=== PATIENT | female | born 1965 ===

== ENCOUNTER 2017-04-15 12:47 | Emergency (ER) | payer MEDICAID, OTHER ==
[2017-04-15 13:00] VITALS: BMI 52.5
[2017-04-15 13:01] VITALS: BP 119/73; PULSE 77; RESP 18; TEMP 98.2; O2SAT 99
--- NOTE | 2017-04-15 13:19 | C.PDOC ---
History Of Present Illness 51 y/o female presents to ED with complaints of left heel pain for 8 days. Patient states she started to feel discomfort while wearing heels and reports pain worse when walking. Patient reports she applied cream to areas 4 days ago with small relief. Patient denies injury, numbness, fever, chills or any other complaints at this time. Time Seen by Provider: 04/15/17 13:08 Chief Complaint (Nursing): Lower Extremity Problem/Injury History Per: Patient History/Exam Limitations: no limitations Onset/Duration Of Symptoms: Days Current Symptoms Are (Timing): Still Present Past Medical History Reviewed: Historical Data, Nursing Documentation, Vital Signs Vital Signs: Last Vital Signs Temp 98.2 F 04/15/17 13:00 Pulse 77 04/15/17 13:00 Resp 18 04/15/17 13:00 BP 119/73 04/15/17 13:00 Pulse Ox 99 04/15/17 14:07 - Medical History PMH: Asthma Surgical History: Back Surgery - [facility] Procedures INCIS PERIANAL ABSCESS (04/30/14) PERIRECTAL INCISION (04/30/14) Family History: States: Unknown Family Hx - Social History Hx Tobacco Use: No Hx Alcohol Use: No Hx Substance Use: No - Immunization History Hx Tetanus Toxoid Vaccination: No Hx Influenza Vaccination: No Hx Pneumococcal Vaccination: No Review Of Systems Constitutional: Negative for: Fever, Chills Musculoskeletal: Positive for: Leg Pain Skin: Negative for: Rash, Bruising Neurological: Negative for: Numbness Physical Exam - Physical Exam Appears: Non-toxic, No Acute Distress Skin: Normal Color, Warm, No Rash, No Ecchymosis, Other (No ulcers) Oral Mucosa: Moist Extremity: Tenderness (Mild tenderness to Medial left heel), No Deformity Extremity: Bilateral: Normal ROM Pulses: Left Dorsalis Pedis: Normal, Right Dorsalis Pedis: Normal Neurological/Psych: Oriented x3, Normal Motor, Normal Sensation ED Course And Treatment O2 Sat by Pulse Oximetry: 99 (RA) Pulse Ox Interpretation: Normal - Other Rad Left foot X-Ray: Interpreted by Me, Viewed By Me Interpretation: IMPRESSION: A small plantar calcaneal spur is identified. Degenerative changes seen at the forefoot as discussed above and a mild. No acute fracture or dislocation identified. Medical Decision Making Medical Decision Making: Impression: Plantar Fasciitis Plan: * Xray of left foot Progress, Reassess and Dispo: XRay shows small calcaneal spur, no fracture Patient remained well in no acute distress. Patient to be discharged. Disposition Counseled Patient/Family Regarding: Need For Followup, Rx Given - Disposition Referrals: Podiatry Clinic [Outside] Disposition: HOME/ ROUTINE Disposition Time: 13:31 Condition: STABLE Additional Instructions: Vaya a victoria mdico o la clnica en 2-5 hernandez sin falta, para mas evaluacin. [place] los medicamentos travis indicado. Volver a la fredi de emergencia en cualquier momento si los sntomas persisten o empeoran. Prescriptions: Ibuprofen [Motrin] 600 mg PO Q8 #30 tab Instructions: Plantar Fasciitis (ED) Forms: [employer] (Korean) Print Language: LATVIAN - POA Present On Arrival: None - Clinical Impression Clinical Impression: Plantar fasciitis of left foot - Scribe Statement The provider has reviewed the documentation as recorded by the Scribanomi Ruff All medical record entries made by the Teriibnaomi were at my direction and personally dictated by me. I have reviewed the chart and agree that the record accurately reflects my personal performance of the history, physical exam, medical decision making, and the department course for this patient. I have also personally directed, reviewed, and agree with the discharge instructions and disposition.
--- NOTE | 2017-04-15 14:04 | RAD ---
PROCEDURE: Left Foot Radiographs. HISTORY: pain to heel of foot COMPARISON: None. FINDINGS: BONES: There is no acute fracture or dislocation or subluxation appreciated. No suspicious lytic or blastic changes identified. A small plantar calcaneal spurs identified. JOINTS: Mild narrowing of the interphalangeal joints is appreciate diffuse as well as the 1st metatarsophalangeal joint compatible with degenerative joint disease. SOFT TISSUES: Normal. OTHER FINDINGS: None. IMPRESSION: A small plantar calcaneal spur is identified. Degenerative changes seen at the forefoot as discussed above and a mild. No acute fracture or dislocation identified.
== END 2017-04-15 13:41 | disposition home or self-care (01) ==
LOC: C.ER 12:47
DX: M72.2 Plantar fascial fibromatosis (principal)

== ENCOUNTER 2017-04-21 06:35 | Observation (INO) | payer MEDICAID, OTHER | END 2017-04-22 14:45 | disposition home or self-care (01) | LOC: C.ER 06:35 → C.9E 11:31 → C.3T 11:59 | PROVIDERS: ADMIT Family Medicine | CPT/HCPCS: 71020; 73650; 73721; 80053; 81001; 85025; 93005; 94150; 94640; 97116; 97161; 99285; G0378; G8978; G8979; J1644; J2930 ==

== ENCOUNTER 2017-05-25 14:55 | Emergency (ER) | payer MEDICAID, OTHER ==
[2017-05-25 14:55] VITALS: BMI 52.5
[2017-05-25 15:15] VITALS: RESP 20; TEMP 98.2
--- NOTE | 2017-05-25 16:18 | C.PDOC ---
History Of Present Illness 51 year old female presents with complaints of left heel pain that she has been experiencing for the past couple of months. She states that the pain intensified over the past seven days and is now affecting her ambulation. She states that she was seen approximately 1 month prior in the emergency room and evaluated for this heel pain. At the time, an MRI of the foot was performed and patient was asked to follow up with the treating inspector in the [facility]. Patient states that she was not aware of the follow up plan due to a miscommunication with her son or daughter who failed to explain her follow up instructions during the prior discharge. Patient is also requesting antibiotics for her chronic asthma. She states that she was given prescriptions when she was last admitted to the hospital however she feels that the medications will make her gain weight. She feels that she needs antibiotics for treatment instead. Time Seen by Provider: 05/25/17 15:15 Chief Complaint (Nursing): Lower Extremity Problem/Injury History Per: Patient, Family, Fulfillment Coordinator History/Exam Limitations: language barrier Onset/Duration Of Symptoms: Days, Persistent Current Symptoms Are (Timing): Still Present Severity: Moderate Pain Scale Rating Of: 7 Recent travel outside of the [place]: No Additional History Per: Family - Knee Description Of Injury: Other (chronic heel pain with ambulation). denies: Fell , Laceration Past Medical History Vital Signs: Last Vital Signs Temp 98.2 F 05/25/17 15:14 Pulse 78 05/25/17 16:33 Resp 20 05/25/17 16:33 BP 119/84 05/25/17 16:33 Pulse Ox 98 05/25/17 16:51 - Medical History PMH: Arthritis (BACK PAIN AND SURGERY YRS AGO), Asthma, COPD (ASTHMA), Depression Surgical History: Back Surgery - [facility] Procedures INCIS PERIANAL ABSCESS (04/30/14) PERIRECTAL INCISION (04/30/14) Family History: States: Unknown Family Hx - Social History Hx Tobacco Use: Yes (Many years before) Hx Alcohol Use: Yes (Socially many years before) Hx Substance Use: No - Immunization History Hx Tetanus Toxoid Vaccination: No Hx Influenza Vaccination: No Hx Pneumococcal Vaccination: No Review Of Systems Constitutional: Negative for: Fever, Chills, Weight loss Eyes: Negative for: Pain, Vision Change Cardiovascular: Negative for: Chest Pain, Palpitations Respiratory: Positive for: Cough, Wheezing Gastrointestinal: Negative for: Nausea, Vomiting, Abdominal Pain Musculoskeletal: Negative for: Neck Pain, Shoulder Pain Skin: Negative for: Rash Neurological: Negative for: Weakness, Numbness, Headache Physical Exam - Physical Exam Appears: Non-toxic, No Acute Distress Skin: Normal Color, Warm, Dry, Other (prominence of superficial vasculature) Head: Atraumatic, Normacephalic Eye(s): bilateral: Normal Inspection Nose: Normal Neck: Normal, Normal ROM Cardiovascular: Other (Regular rate) Respiratory: No Accessory Muscle Use, Wheezing Back: Normal Inspection Extremity: Normal ROM, Swelling, Other (lateral malleolus and anterior dorsal surface of foot) Extremity: Left: [place] Tenderness (left calcaneal heel), Painful To Bear Weight, Bilateral: Normal ROM Pulses: Left Dorsalis Pedis: Normal, Right Dorsalis Pedis: Normal Neurological/Psych: Oriented x3, Normal Speech, Normal Cognition Pain Response: Withdraws With Pain Gait: Steady ED Course And Treatment O2 Sat by Pulse Oximetry: 98 Progress Note: Patient asked to follow up in [facility] to establish care and follow up with Podiatry. Patient provided with MRI results from April admission. Patient also counseled on using asthmatic meds to help with wheezing. She was also counseled that antibiotics are not necessary at this time since her cough and wheezing is secondary to untreated asthma. Disposition - Disposition Referrals: [facility] at [facility] [Outside] Disposition: HOME/ ROUTINE Disposition Time: 16:33 Condition: STABLE Additional Instructions: USTED NECESITA SEGUIR EN LA CLNICA MDICA EN 1-2 FERRARI, Y LOS ENVIARN A LA PODIATRA DR KING REGRESE A ER SI LOS SNTOMAS SE EMPEORARAN Instructions: Tendinitis (ED), Heel Spur (ED) Forms: [employer] (Estonian) Print Language: EGYPTIAN - Clinical Impression Clinical Impression: Arthritis, Joint pain, Asthma
[2017-05-25 16:34] VITALS: BP 119/84; PULSE 78
[2017-05-25 16:35] VITALS: O2SAT 98
== END 2017-05-25 16:35 | disposition home or self-care (01) ==
LOC: C.ER 14:55
DX: M19.071 Primary osteoarthritis, right ankle and foot (principal); M25.571 Pain in right ankle and joints of right foot; J45.909 Unspecified asthma, uncomplicated

== ENCOUNTER 2017-06-15 13:43 | Emergency (ER) | payer MEDICAID, OTHER ==
[2017-06-15 13:43] VITALS: BMI 52.5
[2017-06-15 13:58] VITALS: RESP 18; TEMP 97.9
--- NOTE | 2017-06-15 14:12 | C.PDOC ---
History Of Present Illness 51 year old female presents to the ED for evaluation of left foot pain which began around 1 month ago. Patient was evaluated in ED on 05/25/17 for left foot pain. During her visit, patient underwent left foot x-ray, which was consistent with diagnosis of tendinitis and heel spur. Patient was discharged with instructions to follow up with chartered financial analyst. Patient states she did not follow up because she was under the impression that the chartered financial analyst would contact her. Patient has been taking Motrin with no significant relief. Patient denies fever , chills, any new trauma/injury, extremity numbness/weakness. Time Seen by Provider: 06/15/17 14:01 Chief Complaint (Nursing): Lower Extremity Problem/Injury History Per: Patient History/Exam Limitations: no limitations Onset/Duration Of Symptoms: Other (around 1 month ) Current Symptoms Are (Timing): Still Present Additional History Per: Patient - Ankle/Foot Description Of Injury: denies: Fell, Struck With Object, Struck Against Object, Twisted, Laceration Past Medical History Reviewed: Historical Data, Nursing Documentation, Vital Signs Vital Signs: Last Vital Signs Temp 97.9 F 06/15/17 13:52 Pulse 71 06/15/17 14:47 Resp 18 06/15/17 14:47 BP 127/72 06/15/17 14:47 Pulse Ox 97 06/15/17 18:20 - Medical History PMH: Arthritis (BACK PAIN AND SURGERY YRS AGO), Asthma, COPD (ASTHMA), Depression Surgical History: Back Surgery - [facility] Procedures INCIS PERIANAL ABSCESS (04/30/14) PERIRECTAL INCISION (04/30/14) Family History: States: Unknown Family Hx - Social History Hx Tobacco Use: Yes (Many years before) Hx Alcohol Use: Yes (Socially many years before) Hx Substance Use: No - Immunization History Hx Tetanus Toxoid Vaccination: No Hx Influenza Vaccination: No Hx Pneumococcal Vaccination: No Review Of Systems Musculoskeletal: Positive for: Foot Pain (left) Neurological: Negative for: Weakness, Numbness Physical Exam - Physical Exam Appears: Non-toxic, No Acute Distress Skin: Normal Color, Warm, Dry, No Other (erythema to left foot) Extremity: Normal ROM, Tenderness (to left heel and left mid-foot region on palpation ), No Calf Tenderness, Capillary Refill (less than 2 seconds ), Swelling (mild to left foot ) Pulses: Left Dorsalis Pedis: Normal Neurological/Psych: Normal Speech, Normal Cognition, Normal Motor, Normal Sensation Gait: Steady ED Course And Treatment O2 Sat by Pulse Oximetry: 97 (on RA) Pulse Ox Interpretation: Normal Progress Note: Tramadol PO administered. On reassessment, patient is resting comfortably, showing no signs of distress and reports an improvement in her symptoms. Patient is ambulatory in the ED without distress and is stable for discharge. Explained to patient that she must contact the referred chartered financial analyst herself and schedule a follow-up appointment; she is advised to follow up within 1-2 days for further evaluation. Reassessment Condition: Improved Disposition - Disposition Referrals: [facility] [Outside] Disposition: HOME/ ROUTINE Disposition Time: 14:21 Condition: STABLE Additional Instructions: Follow up with PMD and Ship Manager within 1-2 days. Return to Ed if feel worse. Prescriptions: traMADol [Ultram] 50 mg PO Q6 #20 tab Instructions: Plantar Fasciitis (ED), Tendinitis (ED) Forms: [employer] (Kenyan) Print Language: BAHRAINI - Clinical Impression Clinical Impression: Plantar fasciitis of left foot - PA / BUTCHER OR SMALLGOODS MAKER / Resident Statement MD/DO has reviewed & agrees with the documentation as recorded. - Scribe Statement The provider has reviewed the documentation as recorded by the Scribe (Nina Dunn) All medical record entries made by the Scribe were at my direction and personally dictated by me. I have reviewed the chart and agree that the record accurately reflects my personal performance of the history, physical exam, medical decision making, and the department course for this patient. I have also personally directed, reviewed, and agree with the discharge instructions and disposition.
[2017-06-15 14:48] VITALS: BP 127/72; PULSE 71
[2017-06-15 18:20] VITALS: O2SAT 97
== END 2017-06-15 14:59 | disposition home or self-care (01) ==
LOC: C.ER 13:43
DX: M72.2 Plantar fascial fibromatosis (principal)

== ENCOUNTER 2019-01-05 08:17 | Emergency (ER) | payer MEDICAID ==
[2019-01-05 08:17] VITALS: BMI 52.5
[2019-01-05 08:35] VITALS: RESP 18
--- NOTE | 2019-01-05 11:03 | C.PDOC ---
History Of Present Illness 53 y/o female presents to the ER complaining of pain to left lower leg which has been present for the past 2 weeks. Patient states that pain is at the site of her varicose veins. Patient reports that the pain is worse after standing. She notes that she takes Tylenol 650 mg QD. She does not wear compression stockings. Denies having CP and SOB. Time Seen by Provider: 01/05/19 09:46 Chief Complaint (Nursing): Lower Extremity Problem/Injury History Per: Patient History/Exam Limitations: no limitations Onset/Duration Of Symptoms: Days Current Symptoms Are (Timing): Still Present Severity: Moderate Past Medical History Reviewed: Historical Data, Nursing Documentation, Vital Signs Vital Signs: Last Vital Signs Temp 98.6 F 01/05/19 08:34 Pulse 87 01/05/19 08:34 Resp 18 01/05/19 08:34 BP 128/84 01/05/19 08:34 Pulse Ox 99 01/05/19 08:34 - Medical History PMH: Arthritis (BACK PAIN AND SURGERY YRS AGO), Asthma, COPD (ASTHMA), Depression Surgical History: Back Surgery - [facility] Procedures INCIS PERIANAL ABSCESS (04/30/14) PERIRECTAL INCISION (04/30/14) Family History: States: No Known Family Hx - Social History Hx Tobacco Use: Yes (Many years before) Hx Alcohol Use: Yes (Socially many years before) Hx Substance Use: No - Immunization History Hx Tetanus Toxoid Vaccination: No Hx Influenza Vaccination: No Hx Pneumococcal Vaccination: No Review Of Systems Constitutional: Negative for: Fever, Chills Cardiovascular: Negative for: Chest Pain Respiratory: Negative for: Shortness of Breath Musculoskeletal: Positive for: Leg Pain (left leg pain) Neurological: Negative for: Weakness, Numbness Physical Exam - Physical Exam Appears: Non-toxic, No Acute Distress Skin: Warm, Dry, Other (scab to 1 varicose vein in left lateral calf, no erythema or warmth to bilateral lower extremities) Head: Atraumatic, Normacephalic Eye(s): bilateral: Normal Inspection Cardiovascular: Rhythm Regular Respiratory: Normal Breath Sounds, No Rales, No Rhonchi, No Wheezing Extremity: Normal ROM, No Tenderness, No Calf Tenderness (posterior calf), No Swelling, Other (multiple varicose veins on bilateral legs) Pulses: Left Dorsalis Pedis: Normal, Right Dorsalis Pedis: Normal Neurological/Psych: Oriented x3, Normal Speech, Normal Cognition, Normal Motor (bilateral lower extremities), Normal Sensation (bilateral lower extremities) ED Course And Treatment O2 Sat by Pulse Oximetry: 99 Medical Decision Making Medical Decision Making: Plan: --Tylenol PO Disposition Counseled Patient/Family Regarding: Diagnosis, Need For Followup, Rx Given - Disposition Referrals: Herrera Rhodes MD [Medical Doctor] - Wily Julian Jr., MD [Staff Provider] - Disposition: HOME/ ROUTINE Disposition Time: 11:00 Condition: GOOD Additional Instructions: [place] Tylenol 650 mg por va oral cada 6 horas para el dolor. Recomendamos que use medias de compresin cuando est parado por largos perodos de tiempo. Puedes comprarlos en lnea o en algunas tiendas. Raúl un seguimiento con el Dr. Rhodes y con el Dr. Julian (cirujano vascualr) para determinar si se necesitan otros tratamientos para las venas. Take Tylenol 650 mg by mouth every 6 hours for pain. Recommend you wear compression stocking when standing for long periods of time. You can buy them online or in some stores. Follow up with Dr Rhodes and with Dr Julian (vascualr surgeon) to determine if any other treatments needed for veins. Prescriptions: Acetaminophen [Tylenol 325mg tab] 650 mg PO Q4 #50 tab Instructions: Varicose Veins (DC) Forms: Gen Discharge Inst Greenlandic, [employer] (Greenlandic) Print Language: TAJIK - Clinical Impression Clinical Impression: Varicose veins of both lower extremities
[2019-01-05 11:18] VITALS: BP 131/68; PULSE 64; TEMP 98.2
[2019-01-06 21:44] VITALS: O2SAT 99
== END 2019-01-05 11:17 | disposition home or self-care (01) ==
LOC: C.ER 08:17
DX: I83.93 Asymptomatic varicose veins of bilateral lower extremities (principal)

== ENCOUNTER 2019-02-11 22:50 | Emergency (ER) | payer MEDICAID ==
[2019-02-11 22:51] VITALS: BMI 52.5
--- NOTE | 2019-02-12 00:17 | C.PDOC ---
History Of Present Illness 53 y/o female presents to ED stating she picked at a varicose vein area 3 days ago in left lower leg. States there is on and off bleeding since. She denies any other complaints at this time. Time Seen by Provider: 02/11/19 23:41 Chief Complaint (Nursing): Lower Extremity Problem/Injury History Per: Patient History/Exam Limitations: no limitations Onset/Duration Of Symptoms: Days Current Symptoms Are (Timing): Still Present Past Medical History Reviewed: Historical Data, Nursing Documentation, Vital Signs Vital Signs: Last Vital Signs Temp 98.6 F 02/11/19 23:14 Pulse 68 02/11/19 23:14 Resp 22 02/11/19 23:14 BP 108/74 02/11/19 23:14 Pulse Ox 96 02/11/19 23:14 Primary Care Provider: Herrera Rhodes - Medical History PMH: Arthritis (BACK PAIN AND SURGERY YRS AGO), Asthma, COPD (ASTHMA), D epression Surgical History: Back Surgery - [facility] Procedures INCIS PERIANAL ABSCESS (04/30/14) PERIRECTAL INCISION (04/30/14) Family History: States: No Known Family Hx - Social History Hx Tobacco Use: Yes (Many years before) Hx Alcohol Use: Yes (Socially many years before) Hx Substance Use: No - Immunization History Hx Tetanus Toxoid Vaccination: No Hx Influenza Vaccination: No Hx Pneumococcal Vaccination: No Review Of Systems Constitutional: Negative for: Fever, Chills, Weakness Musculoskeletal: Negative for: Neck Pain, Back Pain Skin: Positive for: Other (left lower leg varicose vein) Neurological: Negative for: Weakness, Numbness Physical Exam - Physical Exam Appears: Non-toxic, No Acute Distress Skin: Warm, Dry, Other (hole in left lower leg, no active bleeding, no surrounding erythema) Head: Normacephalic Eye(s): bilateral: Normal Inspection Oral Mucosa: Moist Neck: Supple Extremity: No Tenderness, No Swelling Extremity: Bilateral: Normal Color And Temperature Neurological/Psych: Oriented x3, Normal Speech, Normal Motor, Normal Sensation ED Course And Treatment O2 Sat by Pulse Oximetry: 96 (RA) Pulse Ox Interpretation: Normal Medical Decision Making Medical Decision Making: Dermabond glue applied, bleeding controlled. Patient referred to vascular. Disposition Counseled Patient/Family Regarding: Diagnosis, Need For Followup - Disposition Referrals: [facility] [Outside] Harjeet Jennings MD [Staff Provider] - Bob Robledo MD [Staff Provider] - Edmond South MD [Staff Provider] - Disposition: HOME/ ROUTINE Disposition Time: 00:14 Condition: IMPROVED Instructions: Treatment of Varicose Veins of the Leg Forms: Gen Discharge Inst Guyanese, [facility] (Guyanese) Print Language: NAMIBIAN - Clinical Impression Clinical Impression: Bleeding from varicose vein - PA / LEASING DIRECTOR / Resident Statement MD/DO has reviewed & agrees with the documentation as recorded. - Scribe Statement The provider has reviewed the documentation as recorded by the Scribe Reshma Espinal All medical record entries made by the Scribe were at my direction and personally dictated by me. I have reviewed the chart and agree that the record accurately reflects my personal performance of the history, physical exam, medical decision making, and the department course for this patient. I have also personally directed, reviewed, and agree with the discharge instructions and disposition.
[2019-02-12 01:00] VITALS: BP 139/89; PULSE 84; RESP 20; TEMP 98.2
[2019-02-12 03:24] VITALS: O2SAT 96
== END 2019-02-12 01:01 | disposition home or self-care (01) ==
LOC: C.ER 22:50
DX: I83.892 Varicose veins of left lower extremity with other complications (principal)